=== PATIENT | male | born 1965 | race Caucasian/White ===

== ENCOUNTER 2017-03-12 08:56 | Inpatient (IN) | payer BC ==
[~2017-03-12] VITALS: Ht 175.3 cm; Wt 120.2 kg
--- NOTE | 2017-03-12 09:14 | PHYS DOC ---
Adult General Chief Complaint Chief Complaint: ALTERED MENTAL STATUS HPI HPI Patient is a 51 year old with no past medical history presents to the ED complaining of not feeling right over the last 3-4 days. States he gets really hot, has trouble concentrating and has been drinking a lot of water. Associated symptoms include dizziness and headache. Describes as sharp. Frontal part of head. Rates as 4/10. Denies flulike symptoms, chest pain, shortness of breath, weakness, nausea/vomiting, abdominal pain, fever, or sick contacts at home. Review of Systems Review of Systems Constitutional: Denies fever or chills [] Eyes: Denies change in visual acuity, redness, or eye pain [] HENT: Denies nasal congestion or sore throat [] Respiratory: Denies cough or shortness of breath [] Cardiovascular: No additional information not addressed in HPI [] GI: Denies abdominal pain, nausea, vomiting, bloody stools or diarrhea [] : Denies dysuria or hematuria [] Musculoskeletal: Denies back pain or joint pain [] Integument: Denies rash or skin lesions [] Neurologic: Complains of headache. Denies focal weakness or sensory changes [] Endocrine: Denies polyuria or polydipsia [] All other systems were reviewed and found to be within normal limits, except as documented in this note. Current Medications Current Medications Current Medications Medications (Trade) Dose Ordered Sig/Susan Start Time Stop Time Status Last Admin Dose Admin Hydralazine HCl (Apresoline Inj) 10 mg 1X ONCE 03/12/17 09:15 03/12/17 09:18 DC 03/12/17 09:31 10 MG Allergies Allergies Allergies Coded Allergies Type Severity Reaction Last Updated Verified No Known Drug Allergies 03/12/17 No Physical Exam Physical Exam Constitutional: Well developed, well nourished, no acute distress, non-toxic appearance. [] HENT: Normocephalic, atraumatic, bilateral external ears normal, oropharynx moist, no oral exudates, nose normal. [] Eyes: PERRLA, EOMI, conjunctiva normal, no discharge. [] Neck: Normal range of motion, no tenderness, supple, no stridor. [] Cardiovascular:Heart rate regular rhythm, no murmur [] Lungs & Thorax: Bilateral breath sounds clear to auscultation [] Abdomen: Bowel sounds normal, soft, no tenderness, no masses, no pulsatile masses. [] Skin: Warm, dry, no erythema, no rash. [] Back: No tenderness, no CVA tenderness. [] Extremities: No tenderness, no cyanosis, no clubbing, ROM intact, no edema. [] Neurologic: Alert and oriented X 3, normal motor function, normal sensory function, no focal deficits noted. [] Psychologic: Affect normal, judgement normal, mood normal. [] Current Patient Data Vital Signs Vital Signs Date Time Temp Pulse Resp B/P (MAP) Pulse Ox O2 Delivery O2 Flow Rate FiO2 03/12/17 10:19 72 14 94 03/12/17 09:31 212/122 03/12/17 09:02 98.1 Room Air 98.1 Lab Values Laboratory Tests Test 03/12/17 09:07 03/12/17 09:18 Glucose (Fingerstick) 118 mg/dL (70-99) H White Blood Count 8.8 x10^3/uL (4.0-11.0) Red Blood Count 5.26 x10^6/uL (4.30-5.70) Hemoglobin 16.0 g/dL (13.0-17.5) Hematocrit 47.0 % (39.0-53.0) Mean Corpuscular Volume 89 fL (79-100) Mean Corpuscular Hemoglobin 30 pg (25-35) Mean Corpuscular Hemoglobin Concent 34 g/dL (31-37) Red Cell Distribution Width 13.2 % (11.5-14.5) Platelet Count 255 x10^3/uL (140-400) Neutrophils (%) (Auto) 72 % (31-73) Lymphocytes (%) (Auto) 17 % (24-48) L Monocytes (%) (Auto) 9 % (0-9) Eosinophils (%) (Auto) 2 % (0-3) Basophils (%) (Auto) 1 % (0-3) Neutrophils # (Auto) 6.3 x10^3uL (1.8-7.7) Lymphocytes # (Auto) 1.5 x10^3/uL (1.0-4.8) Monocytes # (Auto) 0.8 x10^3/uL (0.0-1.1) Eosinophils # (Auto) 0.2 x10^3/uL (0.0-0.7) Basophils # (Auto) 0.1 x10^3/uL (0.0-0.2) Sodium Level 139 mmol/L (136-145) Potassium Level 3.9 mmol/L (3.5-5.1) Chloride Level 102 mmol/L (98-107) Carbon Dioxide Level 27 mmol/L (21-32) Anion Gap 10 (6-14) Blood Urea Nitrogen 17 mg/dL (8-26) Creatinine 1.1 mg/dL (0.7-1.3) Estimated GFR (Cockcroft-Gault) 70.6 BUN/Creatinine Ratio 15 (6-20) Glucose Level 112 mg/dL (70-99) H Calcium Level 9.5 mg/dL (8.5-10.1) Total Bilirubin 0.6 mg/dL (0.2-1.0) Aspartate Amino Transferase (AST) 26 U/L (15-37) Alanine Aminotransferase (ALT) 37 U/L (16-63) Alkaline Phosphatase 72 U/L (46-116) Creatine Kinase 153 U/L (39-308) Creatine Kinase MB (Mass) 0.5 ng/mL (0.0-3.6) Creatine Kinase MB Relative Index 0.3 % (0-4) Troponin I Quantitative < 0.017 ng/mL (0.000-0.055) Total Protein 8.3 g/dL (6.4-8.2) H Albumin 4.3 g/dL (3.4-5.0) Albumin/Globulin Ratio 1.1 (1.0-1.7) Laboratory Tests 03/12/17 09:18 Laboratory Tests 03/12/17 09:18 EKG EKG NSR at 69 bpm. No STEMI or ST-T wave changes.[] Radiology/Procedures Radiology/Procedures PROCEDURE: PORTABLE CHEST 1V EXAM: CHEST 1 VIEW History: Dizziness, high blood pressure COMPARISON: None available. TECHNIQUE: Single portable radiograph of the chest FINDINGS: The cardiac silhouette is unremarkable. The lungs are clear bilaterally. The costophrenic sulci are clear and well demarcated. IMPRESSION: No radiographic evidence of an acute cardiopulmonary process. [] PROCEDURE: CT HEAD WO CONTRAST CT of the head without contrast, 03/12/2017: History: Headache and dizziness There is an elongated fatty density mass located between and superior to the anterior aspects of the lateral ventricles in the pericallosal region. It is centered just to the left of midline. It measures approximately 4 cm in greatest AP dimension and 1 cm in width. 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 The lateral ventricles are somewhat small. There is no shift of the midline structures. There is no evidence of acute intracranial hemorrhage or mass effect. There is mild mucosal thickening in both ethmoid sinuses. A small mucosal nodule in the right maxillary sinus is probably a retention cyst. 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 MR scanning would best delineate these findings, if clinically indicated. 2. Small lateral ventricles. 3. No acute intracranial abnormality is detected. Course & Med Decision Making Course & Med Decision Making Pertinent Labs and Imaging studies reviewed. (See chart for details) []Discussed case with hospitalist, Dr. Garzon, and neurologist, Dr. Goldman. Agrees to admission and further management of patient. Aggressive BP management allowed due to no brain bleeding. Neurology recommends MRI with and without contrast to further evaluated CT head findings. Patient stable for admission. Dragon Disclaimer Dragon Disclaimer This electronic medical record was generated, in whole or in part, using a voice recognition dictation system. Departure Departure Impression: Primary Impression: Brain lipoma Additional Impression: Hypertensive urgency Disposition: ADMITTED INPATIENT Admitting Physician: Cristel Garzon Condition: STABLE Scripts Lisinopril (LISINOPRIL) 5 Mg Tablet 5 MG PO DAILY for 30 Days, #30 TAB 3 Refills Prov: ALEIDA DOCKERY MD 03/13/17 Hydrochlorothiazide (HYDROCHLOROTHIAZIDE TABLET ) 25 Mg Tablet 25 MG PO DAILY for 30 Days, #30 TAB 3 Refills Prov: ALEIDA DOCKERY MD 03/13/17 Problem Qualifiers ROBINSON PRESSLEY Mar 12, 2017 09:13
[2017-03-12] MEDS ORDERED: hydrALAZINE 20 MG/ML VIAL. IVP ONE (09:15)
--- NOTE | 2017-03-12 09:24 | EKG ---
[facility] [address] [place] [address] Test Date: 2017-03-12 Test Time: 09:20:05 Pat Name: HARRIET MURO Department: Room: Gender: M Fagoter: : 1965 Requested By: ROBINSON PRESSLEY Order Number: [id number] Reading MD: Measurements Intervals Marshall Rate: 69 P: 51 IN: 146 QRS: 19 QRSD: 98 T: 0 QT: 398 QTc: 428 Interpretive Statements SINUS RHYTHM NORMAL ECG RI6.01 No previous ECG available for comparison
[2017-03-12 09:34] LABS: BASO # 0.1 x10^3/uL (0.0-0.2); BASO % 1 % (0-3); EOS % 2 % (0-3); LYMPH # 1.5 x10^3/uL (1.0-4.8); LYMPH % 17 % (24-48); MEAN CORPUSCULAR HEMOGLOBIN 30 pg (25-35); MEAN CORPUSCULAR HGB CONC 34 g/dL (31-37); MEAN CORPUSCULAR VOLUME 89 fL (79-100); MONO % 9 % (0-9); NEUT % 72 % (31-73); PLATELET COUNT 255 x10^3/uL (140-400); RED BLOOD COUNT 5.26 x10^6/uL (4.30-5.70); RED CELL DISTRIBUTION WIDTH 13.2 % (11.5-14.5); WHITE BLOOD COUNT 8.8 x10^3/uL (4.0-11.0)
--- NOTE | 2017-03-12 09:37 | RAD ---
EXAM: CHEST 1 VIEW History: Dizziness, high blood pressure COMPARISON: None available. TECHNIQUE: Single portable radiograph of the chest FINDINGS: The cardiac silhouette is unremarkable. The lungs are clear bilaterally. The costophrenic sulci are clear and well demarcated. IMPRESSION: No radiographic evidence of an acute cardiopulmonary process.
[2017-03-12 09:38] LABS: CALCIUM 9.5 mg/dL (8.5-10.1); CREATININE 1.1 mg/dL (0.7-1.3); GFR 70.6; POTASSIUM 3.9 mmol/L (3.5-5.1)
[2017-03-12 09:44] LABS: ALBUMIN 4.3 g/dL (3.4-5.0); TOTAL PROTEIN 8.3 g/dL (6.4-8.2)
[2017-03-12 09:45] LABS: ALBUMIN/GLOBULIN RATIO 1.1 (1.0-1.7); TOTAL BILIRUBIN 0.6 mg/dL (0.2-1.0)
[2017-03-12 09:52] LABS: CKMB MASS 0.5 ng/mL (0.0-3.6)
--- NOTE | 2017-03-12 10:12 | RAD ---
CT of the head without contrast, 03/12/2017: History: Headache and dizziness There is an elongated fatty density mass located between and superior to the anterior aspects of the lateral ventricles in the pericallosal region. It is centered just to the left of midline. It measures approximately 4 cm in greatest AP dimension and 1 cm in width. 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 The lateral ventricles are somewhat small. There is no shift of the midline structures. There is no evidence of acute intracranial hemorrhage or mass effect. There is mild mucosal thickening in both ethmoid sinuses. A small mucosal nodule in the right maxillary sinus is probably a retention cyst. 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 MR scanning would best delineate these findings, if clinically indicated. 2. Small lateral ventricles. 3. No acute intracranial abnormality is detected. PQRS Compliance Statement: One or more of the following individualized dose reduction techniques were utilized for this examination: 1. Automated exposure control 2. Adjustment of the mA and/or kV according to patient size 3. Use of iterative reconstruction technique
[2017-03-12] MEDS ORDERED: MORPHINE SULFATE 2 MG/ML DISP.SYRIN. IV PRN (11:00)
[2017-03-12] MEDS ORDERED: ACETAMINOPHEN 325 MG TABLET. PO PRN (11:00)
[2017-03-12] MEDS ORDERED: ONDANSETRON PF 4 MG/2 ML VIAL. IV PRN ×2 (11:00→12:15)
[2017-03-12 11:36] VITALS: BP 189/104
[2017-03-12 11:37] VITALS: BP 196/64
[2017-03-12 13:42] LABS: BILIRUBIN,URINE NEGATIVE (NEG); GLUCOSE,URINE NEGATIVE (NEG); NITRITE,URINE NEGATIVE (NEG); PROTEIN,URINE NEGATIVE (NEG-TRACE); UROBILINOGEN,URINE 0.2 mg/dL (0.2 mg/dL)
[2017-03-12 13:49] LABS: BACTERIA,URINE 0 /HPF (0-FEW); RBC,URINE 0 /HPF (0-2); WBC,URINE 0 /HPF (0-4)
[2017-03-12 13:50] LABS: BARBITURATES NEG (NEG); BENZODIAZEPINES NEG (NEG); CANNABINOIDS NEG (NEG); COCAINE NEG (NEG); METHADONE NEG (NEG); OPIATES NEG (NEG); PHENCYCLIDINE NEG (NEG)
[2017-03-12] MEDS: hydrALAZINE 20 MG/ML VIAL. IVP PRN ×2 (14:11→19:45)
--- NOTE | 2017-03-12 14:37 | PDOC1 ---
History and Physical Date of Admission Date of Admission DATE: 03/12/17 TIME: 14:32 Identification/Chief Complaint Chief Complaint Headaches for 3 days Problems: Source Source: Caregiver, Chart review, Patient History of Present Illness History of Present Illness Pleasant 51-year-old male on the heavy side BMI 39.1, does not take any home medications prior to admission, has been feeling fairly well up until 3 days prior to admission some mild to moderate headaches. Hence he came to the emergency room, a failure was found have a systolic greater than 220s over 120s diastolic. CAT scan of the head was done which showed possible lipoma in the middle part of the brain, mid sagittal area. Neurology was consulted advised MRI with and without contrast. Patient attempted to go down with MRI machine with a cooling system is broken. The erythematous fix it. If not today delivered tomorrow. Patient still requiring IV labetalol when necessary push that I have ordered because of high blood pressure. Aside from mild headache no other symptoms of neck pains blurry vision or focal neuro deficits. Physical examination his P relief entirely normal no hematoma murmur. I do believe the being findings are only incidental, we will try to control his blood pressure and start him on oral blood pressure medications. I did discuss with him he will need to establish PCP and get BMP in 1 month into taking his blood pressure medications which are old. He understands. Past Medical History Cardiovascular: No pertinent hx Pulmonary: No pertinent hx GI: No pertinent hx Heme/Onc: No pertinent hx Hepatobiliary: No pertinent hx Psych: No pertinent hx Rheumatologic: No pertinent hx Infectious disease: No pertinent hx ENT: No pertinent hx Renal/: No pertinent hx Endocrine: No pertinent hx Dermatology: No pertinent hx Past Surgical History Past Surgical History: No pertinent history Family History Family History: Hypertension Social History Smoke: No ALCOHOL: none Drugs: None Current Medications Current Medications Current Medications Hydralazine HCl (Apresoline Inj) 10 mg 1X ONCE IVP Last administered on t 09:31; Start 03/12/17 at 09:15; Stop 03/12/17 at 09:18; Status DC Ondansetron HCl (Zofran) 4 mg PRN Q8HRS PRN IV NAUSEA/VOMITING; Start 03/12/17 at 11:00; Stop 03/12/17 at 12:06; Status DC Morphine Sulfate 2 mg PRN Q2HR PRN IV PAIN; Start 03/12/17 at 11:00; Stop 03/13 at 10:59 Acetaminophen (Tylenol) 650 mg PRN Q4HRS PRN PO FEVER; Start 03/12/17 at 11:00 ; Stop 03/13/17 at 10:59 Ondansetron HCl (Zofran) 4 mg PRN Q6HRS PRN IV NAUSEA/VOMITING; Start 03/12/17 at 12:15; Stop 03/13/17 at 12:14 Hydralazine HCl (Apresoline Inj) 10 mg PRN Q4HRS PRN IVP ELEVATED BP, SEE COMMENTS Last administered on 03/12/17t 14:11; Start 03/12/17 at 12:15 Acetaminophen/ Hydrocodone Bitart (Lortab 5/325) 1 tab PRN Q4HRS PRN PO PAIN; Start 03/12/17 at 12:15 Allergies Allergies: Coded Allergies: No Known Drug Allergies (Unverified , 03/12/17) ROS Review of System A 14 point ROS was completed with the following noted as positive: Other systems reviewed and negative. \CONSTITUTIONAL: No fever or chills EYES: No recent changes SKIN: No rash or itching CARDIOVASCULAR: No chest pain, syncope, palpitations, or edema RESPIRATORY: No SOB or cough GASTROINTESTINAL: No nausea, vomiting or abdominal pain NEUROLOGICAL: No headaches or weakness ENDOCRINE: No cold or heat intolerance GENITOURINARY: No urgency or frequency of urination MUSCULOSKELETAL: No back pain or joint pain LYMPHATICS: No enlarged lymph nodes PSYCHIATRIC: No anxiety or depression Physical Exam Physical Exam Physical Exam General: Alert, Oriented X3, Cooperative, No acute distress HEENT: Atraumatic, PERRLA Lungs: Normal air movement, Other (wheezy) Heart: S1S2, RRR, no thrills, no gallops, no murmurs Cardiovascular: S1, S2 Abdomen: Normal bowel sounds, Soft, No tenderness, No hepatosplenomegaly, No masses, Other (obese) Rectal Exam: not examined PELVIC: Nml ext genitalia Extremities: No rashes, no edema, pulses full and equal Skin: No rashes, No breakdown, No significant lesion Neuro: Normal gait, Normal speech, Strength at 5/5 X4 ext, Normal tone, Sensation intact, Cranial nerves 3-12 NL, Reflexes 2+ Psych/Mental Status: Mental status NL, Mood NL Vitals Vitals Vital Signs Date Time Temp Pulse Resp B/P (MAP) Pulse Ox O2 Delivery O2 Flow Rate FiO2 03/12/17 14:11 68 165/93 03/12/17 11:59 Room Air 03/12/17 11:36 97.9 16 96 97.9 Labs Labs Laboratory Tests Test 03/12/17 09:07 03/12/17 09:18 03/12/17 13:25 Glucose (Fingerstick) 118 mg/dL (70-99) White Blood Count 8.8 x10^3/uL (4.0-11.0) Red Blood Count 5.26 x10^6/uL (4.30-5.70) Hemoglobin 16.0 g/dL (13.0-17.5) Hematocrit 47.0 % (39.0-53.0) Mean Corpuscular Volume 89 fL (79-100) Mean Corpuscular Hemoglobin 30 pg (25-35) Mean Corpuscular Hemoglobin Concent 34 g/dL (31-37) Red Cell Distribution Width 13.2 % (11.5-14.5) Platelet Count 255 x10^3/uL (140-400) Neutrophils (%) (Auto) 72 % (31-73) Lymphocytes (%) (Auto) 17 % (24-48) Monocytes (%) (Auto) 9 % (0-9) Eosinophils (%) (Auto) 2 % (0-3) Basophils (%) (Auto) 1 % (0-3) Neutrophils # (Auto) 6.3 x10^3uL (1.8-7.7) Lymphocytes # (Auto) 1.5 x10^3/uL (1.0-4.8) Monocytes # (Auto) 0.8 x10^3/uL (0.0-1.1) Eosinophils # (Auto) 0.2 x10^3/uL (0.0-0.7) Basophils # (Auto) 0.1 x10^3/uL (0.0-0.2) Sodium Level 139 mmol/L (136-145) Potassium Level 3.9 mmol/L (3.5-5.1) Chloride Level 102 mmol/L (98-107) Carbon Dioxide Level 27 mmol/L (21-32) Anion Gap 10 (6-14) Blood Urea Nitrogen 17 mg/dL (8-26) Creatinine 1.1 mg/dL (0.7-1.3) Estimated GFR (Cockcroft-Gault) 70.6 BUN/Creatinine Ratio 15 (6-20) Glucose Level 112 mg/dL (70-99) Calcium Level 9.5 mg/dL (8.5-10.1) Total Bilirubin 0.6 mg/dL (0.2-1.0) Aspartate Amino Transf (AST/SGOT) 26 U/L (15-37) Alanine Aminotransferase (ALT/SGPT) 37 U/L (16-63) Alkaline Phosphatase 72 U/L (46-116) Creatine Kinase 153 U/L (39-308) Creatine Kinase MB (Mass) 0.5 ng/mL (0.0-3.6) Creatine Kinase MB Relative Index 0.3 % (0-4) Troponin I Quantitative < 0.017 ng/mL (0.000-0.055) Total Protein 8.3 g/dL (6.4-8.2) Albumin 4.3 g/dL (3.4-5.0) Albumin/Globulin Ratio 1.1 (1.0-1.7) Urine Collection Type Unknown Urine Color Yellow Urine Clarity Clear Urine pH 6.0 Urine Specific [place] 1.025 Urine Protein Negative mg/dL (NEG-TRACE) Urine Glucose (UA) Negative mg/dL (NEG) Urine Ketones (Stick) Negative mg/dL (NEG) Urine Blood Negative (NEG) Urine Nitrite Negative (NEG) Urine Bilirubin Negative (NEG) Urine Urobilinogen Dipstick 0.2 mg/dL (0.2 mg/dL) Urine Leukocyte Esterase Negative (NEG) Urine RBC 0 /HPF (0-2) Urine WBC 0 /HPF (0-4) Urine Squamous Epithelial Cells None /LPF Urine Bacteria 0 /HPF (0-FEW) Urine Mucus Marked /LPF Urine Opiates Screen Neg (NEG) Urine Methadone Screen Neg (NEG) Urine Barbiturates Neg (NEG) Urine Phencyclidine Screen Neg (NEG) Urine Amphetamine/Methamphetamine Neg (NEG) Urine Benzodiazepines Screen Neg (NEG) Urine Cocaine Screen Neg (NEG) Urine Cannabinoids Screen Neg (NEG) Urine Ethyl Alcohol Neg (NEG) Laboratory Tests Test 03/12/17 09:07 03/12/17 09:18 124/17 13:25 Glucose (Fingerstick) 118 mg/dL (70-99) White Blood Count 8.8 x10^3/uL (4.0-11.0) Red Blood Count 5.26 x10^6/uL (4.30-5.70) Hemoglobin 16.0 g/dL (13.0-17.5) Hematocrit 47.0 % (39.0-53.0) Mean Corpuscular Volume 89 fL (79-100) Mean Corpuscular Hemoglobin 30 pg (25-35) Mean Corpuscular Hemoglobin Concent 34 g/dL (31-37) Red Cell Distribution Width 13.2 % (11.5-14.5) Platelet Count 255 x10^3/uL (140-400) Neutrophils (%) (Auto) 72 % (31-73) Lymphocytes (%) (Auto) 17 % (24-48) Monocytes (%) (Auto) 9 % (0-9) Eosinophils (%) (Auto) 2 % (0-3) Basophils (%) (Auto) 1 % (0-3) Neutrophils # (Auto) 6.3 x10^3uL (1.8-7.7) Lymphocytes # (Auto) 1.5 x10^3/uL (1.0-4.8) Monocytes # (Auto) 0.8 x10^3/uL (0.0-1.1) Eosinophils # (Auto) 0.2 x10^3/uL (0.0-0.7) Basophils # (Auto) 0.1 x10^3/uL (0.0-0.2) Sodium Level 139 mmol/L (136-145) Potassium Level 3.9 mmol/L (3.5-5.1) Chloride Level 102 mmol/L (98-107) Carbon Dioxide Level 27 mmol/L (21-32) Anion Gap 10 (6-14) Blood Urea Nitrogen 17 mg/dL (8-26) Creatinine 1.1 mg/dL (0.7-1.3) Estimated GFR (Cockcroft-Gault) 70.6 BUN/Creatinine Ratio 15 (6-20) Glucose Level 112 mg/dL (70-99) Calcium Level 9.5 mg/dL (8.5-10.1) Total Bilirubin 0.6 mg/dL (0.2-1.0) Aspartate Amino Transf (AST/SGOT) 26 U/L (15-37) Alanine Aminotransferase (ALT/SGPT) 37 U/L (16-63) Alkaline Phosphatase 72 U/L (46-116) Creatine Kinase 153 U/L (39-308) Creatine Kinase MB (Mass) 0.5 ng/mL (0.0-3.6) Creatine Kinase MB Relative Index 0.3 % (0-4) Troponin I Quantitative < 0.017 ng/mL (0.000-0.055) Total Protein 8.3 g/dL (6.4-8.2) Albumin 4.3 g/dL (3.4-5.0) Albumin/Globulin Ratio 1.1 (1.0-1.7) Urine Collection Type Unknown Urine Color Yellow Urine Clarity Clear Urine pH 6.0 Urine Specific [place] 1.025 Urine Protein Negative mg/dL (NEG-TRACE) Urine Glucose (UA) Negative mg/dL (NEG) Urine Ketones (Stick) Negative mg/dL (NEG) Urine Blood Negative (NEG) Urine Nitrite Negative (NEG) Urine Bilirubin Negative (NEG) Urine Urobilinogen Dipstick 0.2 mg/dL (0.2 mg/dL) Urine Leukocyte Esterase Negative (NEG) Urine RBC 0 /HPF (0-2) Urine WBC 0 /HPF (0-4) Urine Squamous Epithelial Cells None /LPF Urine Bacteria 0 /HPF (0-FEW) Urine Mucus Marked /LPF Urine Opiates Screen Neg (NEG) Urine Methadone Screen Neg (NEG) Urine Barbiturates Neg (NEG) Urine Phencyclidine Screen Neg (NEG) Urine Amphetamine/Methamphetamine Neg (NEG) Urine Benzodiazepines Screen Neg (NEG) Urine Cocaine Screen Neg (NEG) Urine Cannabinoids Screen Neg (NEG) Urine Ethyl Alcohol Neg (NEG) VTE Prophylaxis Ordered VTE Prophylaxis Devices: Yes VTE Pharmacological Prophylaxi: Yes Assessment/Plan Assessment/Plan Hypertensive emergency present on admission number Headaches 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 ASHWINI WOOD MD Mar 12, 2017 14:37
--- NOTE | 2017-03-12 14:49 | PDOC2 ---
NEUROLOGY CONSULT Date of Admission Date of Admission DATE: 03/12/17 TIME: 14:45 Reason for Consult Reason for Consult: Abnormal head CT Referring Physician Referring Physician: Dr. Garzon PCP: Ms. Alves Source Source: Caregiver, Patient History of Present Illness History of Present Illness The patient is a 51-year-old right-handed male admitted to the emergency department with 3 days of confusion and headache. He was found to have severe hypertension and an abnormal head CT as reviewed below. Interestingly, he says that his sister had a fatty tumor removed from her head, but he does not know if this was intracranial. He denies the history of strokes, seizure, or head injury. 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 Current Medications Current Medications Current Medications Hydralazine HCl (Apresoline Inj) 10 mg 1X ONCE IVP Last administered on 09:31; Start 03/12/17 at 09:15; Stop 03/12/17 at 09:18; Status DC Ondansetron HCl (Zofran) 4 mg PRN Q8HRS PRN IV NAUSEA/VOMITING; Start 03/12/17 at 11:00; Stop 03/12/17 at 12:06; Status DC Morphine Sulfate 2 mg PRN Q2HR PRN IV PAIN; Start 03/12/17 at 11:00; Stop 03/13 at 10:59 Acetaminophen (Tylenol) 650 mg PRN Q4HRS PRN PO FEVER; Start 03/12/17 at 11:00 ; Stop 03/13/17 at 10:59 Ondansetron HCl (Zofran) 4 mg PRN Q6HRS PRN IV NAUSEA/VOMITING; Start 03/12/17 at 12:15; Stop 03/13/17 at 12:14 Hydralazine HCl (Apresoline Inj) 10 mg PRN Q4HRS PRN IVP ELEVATED BP, SEE COMMENTS Last administered on 03/12/17 14:11; Start 03/12/17 at 12:15 Acetaminophen/ Hydrocodone Bitart (Lortab 5/325) 1 tab PRN Q4HRS PRN PO PAIN; Start 03/12/17 at 12:15 Lisinopril (Prinivil) 5 mg DAILY PO ; Start 03/12/17 at 14:45 Hydrochlorothiazide (Hydrodiuril) 25 mg DAILY PO ; Start 03/12/17 at 14:45 Allergies Allergies: Coded Allergies: No Known Drug Allergies (Unverified , 03/12/17) ROS Review of System Negative for fevers, chills, weight loss, shortness of breath, chest pain, indigestion, hematochezia, melena, dysuria. Full 14-point review systems is negative. Physical Exam Physical Examination PHYSICAL EXAMINATION: Vital signs: see above. General appearance is normal and in no acute distress. HEENT: Normocephalic and nontraumatic. Eyes, nose, ears, and throat are unremarkable. Neck is supple. No lymphadenopathy. No bruits are heard over the carotid artery. No crepitus. NEUROLOGICAL EXAMINATION: Mental Status Examination: Alert. Oriented to time, place, and person. Answers questions and follows commends. Pupils are equal round and reactive to light and accommodation. Funduscopic exam: No papilledema. Extraocular movements are intact. Visual field exam shows no defect on the direct confrontation. No motor or sensory deficits on the facial exam. Uvula in the midline and the soft palate elevated symmetrically. No deviation of the tongue to any direction. Gross hearing is normal. Shoulder shrug normal. Muscle tone is normal. Muscle strength is 5. Deep tendon reflexes are 2+ all around. Plantar reflex is with flexion response bilaterally. [id number]-[id number] test performance is accurate. Tandem walk test is accurate. Alternative movements are accurate. Romberg test is negative. Gait is normal. Sensory exam shows no deficits. No cerebellar signs are elicited. Vitals VITALS Vital Signs Date Time Temp Pulse Resp B/P (MAP) Pulse Ox O2 Delivery O2 Flow Rate FiO2 03/12/17 14:11 68 165/93 03/12/17 11:59 Room Air 03/12/17 11:36 97.9 16 96 97.9 Labs Labs Laboratory Tests Test 03/12/17 09:07 03/12/17 09:18 03/12/17 13:25 Glucose (Fingerstick) 118 mg/dL (70-99) White Blood Count 8.8 x10^3/uL (4.0-11.0) Red Blood Count 5.26 x10^6/uL (4.30-5.70) Hemoglobin 16.0 g/dL (13.0-17.5) Hematocrit 47.0 % (39.0-53.0) Mean Corpuscular Volume 89 fL (79-100) Mean Corpuscular Hemoglobin 30 pg (25-35) Mean Corpuscular Hemoglobin Concent 34 g/dL (31-37) Red Cell Distribution Width 13.2 % (11.5-14.5) Platelet Count 255 x10^3/uL (140-400) Neutrophils (%) (Auto) 72 % (31-73) Lymphocytes (%) (Auto) 17 % (24-48) Monocytes (%) (Auto) 9 % (0-9) Eosinophils (%) (Auto) 2 % (0-3) Basophils (%) (Auto) 1 % (0-3) Neutrophils # (Auto) 6.3 x10^3uL (1.8-7.7) Lymphocytes # (Auto) 1.5 x10^3/uL (1.0-4.8) Monocytes # (Auto) 0.8 x10^3/uL (0.0-1.1) Eosinophils # (Auto) 0.2 x10^3/uL (0.0-0.7) Basophils # (Auto) 0.1 x10^3/uL (0.0-0.2) Sodium Level 139 mmol/L (136-145) Potassium Level 3.9 mmol/L (3.5-5.1) Chloride Level 102 mmol/L (98-107) Carbon Dioxide Level 27 mmol/L (21-32) Anion Gap 10 (6-14) Blood Urea Nitrogen 17 mg/dL (8-26) Creatinine 1.1 mg/dL (0.7-1.3) Estimated GFR (Cockcroft-Gault) 70.6 BUN/Creatinine Ratio 15 (6-20) Glucose Level 112 mg/dL (70-99) Calcium Level 9.5 mg/dL (8.5-10.1) Total Bilirubin 0.6 mg/dL (0.2-1.0) Aspartate Amino Transf (AST/SGOT) 26 U/L (15-37) Alanine Aminotransferase (ALT/SGPT) 37 U/L (16-63) Alkaline Phosphatase 72 U/L (46-116) Creatine Kinase 153 U/L (39-308) Creatine Kinase MB (Mass) 0.5 ng/mL (0.0-3.6) Creatine Kinase MB Relative Index 0.3 % (0-4) Troponin I Quantitative < 0.017 ng/mL (0.000-0.055) Total Protein 8.3 g/dL (6.4-8.2) Albumin 4.3 g/dL (3.4-5.0) Albumin/Globulin Ratio 1.1 (1.0-1.7) Urine Collection Type Unknown Urine Color Yellow Urine Clarity Clear Urine pH 6.0 Urine Specific [place] 1.025 Urine Protein Negative mg/dL (NEG-TRACE) Urine Glucose (UA) Negative mg/dL (NEG) Urine Ketones (Stick) Negative mg/dL (NEG) Urine Blood Negative (NEG) Urine Nitrite Negative (NEG) Urine Bilirubin Negative (NEG) Urine Urobilinogen Dipstick 0.2 mg/dL (0.2 mg/dL) Urine Leukocyte Esterase Negative (NEG) Urine RBC 0 /HPF (0-2) Urine WBC 0 /HPF (0-4) Urine Squamous Epithelial Cells None /LPF Urine Bacteria 0 /HPF (0-FEW) Urine Mucus Marked /LPF Urine Opiates Screen Neg (NEG) Urine Methadone Screen Neg (NEG) Urine Barbiturates Neg (NEG) Urine Phencyclidine Screen Neg (NEG) Urine Amphetamine/Methamphetamine Neg (NEG) Urine Benzodiazepines Screen Neg (NEG) Urine Cocaine Screen Neg (NEG) Urine Cannabinoids Screen Neg (NEG) Urine Ethyl Alcohol Neg (NEG) Laboratory Tests Test 03/12/17 09:07 03/12/17 09:18 03/12/17 13:25 Glucose (Fingerstick) 118 mg/dL (70-99) White Blood Count 8.8 x10^3/uL (4.0-11.0) Red Blood Count 5.26 x10^6/uL (4.30-5.70) Hemoglobin 16.0 g/dL (13.0-17.5) Hematocrit 47.0 % (39.0-53.0) Mean Corpuscular Volume 89 fL (79-100) Mean Corpuscular Hemoglobin 30 pg (25-35) Mean Corpuscular Hemoglobin Concent 34 g/dL (31-37) Red Cell Distribution Width 13.2 % (11.5-14.5) Platelet Count 255 x10^3/uL (140-400) Neutrophils (%) (Auto) 72 % (31-73) Lymphocytes (%) (Auto) 17 % (24-48) Monocytes (%) (Auto) 9 % (0-9) Eosinophils (%) (Auto) 2 % (0-3) Basophils (%) (Auto) 1 % (0-3) Neutrophils # (Auto) 6.3 x10^3uL (1.8-7.7) Lymphocytes # (Auto) 1.5 x10^3/uL (1.0-4.8) Monocytes # (Auto) 0.8 x10^3/uL (0.0-1.1) Eosinophils # (Auto) 0.2 x10^3/uL (0.0-0.7) Basophils # (Auto) 0.1 x10^3/uL (0.0-0.2) Sodium Level 139 mmol/L (136-145) Potassium Level 3.9 mmol/L (3.5-5.1) Chloride Level 102 mmol/L (98-107) Carbon Dioxide Level 27 mmol/L (21-32) Anion Gap 10 (6-14) Blood Urea Nitrogen 17 mg/dL (8-26) Creatinine 1.1 mg/dL (0.7-1.3) Estimated GFR (Cockcroft-Gault) 70.6 BUN/Creatinine Ratio 15 (6-20) Glucose Level 112 mg/dL (70-99) Calcium Level 9.5 mg/dL (8.5-10.1) Total Bilirubin 0.6 mg/dL (0.2-1.0) Aspartate Amino Transf (AST/SGOT) 26 U/L (15-37) Alanine Aminotransferase (ALT/SGPT) 37 U/L (16-63) Alkaline Phosphatase 72 U/L (46-116) Creatine Kinase 153 U/L (39-308) Creatine Kinase MB (Mass) 0.5 ng/mL (0.0-3.6) Creatine Kinase MB Relative Index 0.3 % (0-4) Troponin I Quantitative < 0.017 ng/mL (0.000-0.055) Total Protein 8.3 g/dL (6.4-8.2) Albumin 4.3 g/dL (3.4-5.0) Albumin/Globulin Ratio 1.1 (1.0-1.7) Urine Collection Type Unknown Urine Color Yellow Urine Clarity Clear Urine pH 6.0 Urine Specific [place] 1.025 Urine Protein Negative mg/dL (NEG-TRACE) Urine Glucose (UA) Negative mg/dL (NEG) Urine Ketones (Stick) Negative mg/dL (NEG) Urine Blood Negative (NEG) Urine Nitrite Negative (NEG) Urine Bilirubin Negative (NEG) Urine Urobilinogen Dipstick 0.2 mg/dL (0.2 mg/dL) Urine Leukocyte Esterase Negative (NEG) Urine RBC 0 /HPF (0-2) Urine WBC 0 /HPF (0-4) Urine Squamous Epithelial Cells None /LPF Urine Bacteria 0 /HPF (0-FEW) Urine Mucus Marked /LPF Urine Opiates Screen Neg (NEG) Urine Methadone Screen Neg (NEG) Urine Barbiturates Neg (NEG) Urine Phencyclidine Screen Neg (NEG) Urine Amphetamine/Methamphetamine Neg (NEG) Urine Benzodiazepines Screen Neg (NEG) Urine Cocaine Screen Neg (NEG) Urine Cannabinoids Screen Neg (NEG) Urine Ethyl Alcohol Neg (NEG) Images Images CT of the head without contrast, 03/12/2017: History: Headache and dizziness There is an elongated fatty density mass located between and superior to the anterior aspects of the lateral ventricles in the pericallosal region. It is centered just to the left of midline. It measures approximately 4 cm in greatest AP dimension and 1 cm in width. 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 The lateral ventricles are somewhat small. There is no shift of the midline structures. There is no evidence of acute intracranial hemorrhage or mass effect. There is mild mucosal thickening in both ethmoid sinuses. A small mucosal nodule in the right maxillary sinus is probably a retention cyst. 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 MR scanning would best delineate these findings, if clinically indicated. 2. Small lateral ventricles. 3. No acute intracranial abnormality is detected. 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 Recommendations: MRI of the brain. Okay for aggressive treatment of hypertension given the fact that the exam and had scan are negative for any acute stroke. Thank you for letting me help with the patient's care. ELISHA ESPINO MD Mar 12, 2017 14:49
[2017-03-12 15:00] VITALS: BP 167/87
[2017-03-12] MEDS: HYDROcodone/APAP 5/325MG 1 TAB TABLET PO PRN ×2 (15:16→19:46)
--- NOTE | 2017-03-12 16:32 | CARD ---
APPROVED REPORT EXAM: Two-dimensional and M-mode echocardiogram with Doppler and color Doppler. Other Information Quality : Good INDICATION Hypertension/HCVD 2D DIMENSIONS RVDd3.1 (2.9-3.5cm)Left Atrium(2D)3.6 (1.6-4.0cm) IVSd1.2 (0.7-1.1cm)Aortic Root(2D)2.8 (2.0-3.7cm) LVDd5.1 (3.9-5.9cm)LVOT Diameter2.0 (1.8-2.4cm) PWd1.4 (0.7-1.1cm)LVDs3.1 (2.5-4.0cm) FS (%) 30.0 %SV85.2 ml LVEF(%)60.0 (>50%) Aortic Valve AoV Peak Rajiv.138.9cm/sAoV VTI23.5cm AO Peak GR.7.7mmHgLVOT Peak Rajiv.105.6cm/s AO Mean GR.4mmHgAVA (VMAX)2.35cm2 GLORIA (VTI)2.60cm2 Mitral Valve MV E Vidyztgl93.1cm/sMV DECEL PVKA552wh MV A Uoxaodtj80.7cm/sE/A Ratio0.8 Pulmonary Vein S1 Krmsjhjo30.1cm/sD2 Fjugvian78.9cm/s LEFT VENTRICLE The left ventricle is normal size. There is mild concentric left ventricular hypertrophy. The left ve ntricular systolic function is normal. The Ejection Fraction is 55-60%. There is normal LV segmental wall motion. Transmitral Doppler flow pattern is Grade I-abnormal relaxation pattern. RIGHT VENTRICLE The right ventricle is normal size. The right ventricular systolic function is normal. ATRIA The left atrium size is normal. The right atrium size is normal. The interatrial septum is intact wit h no evidence for an atrial septal defect or patent foramen ovale as noted on 2-D or Doppler imaging. AORTIC VALVE The aortic valve is normal in structure and function. Doppler and Color Flow revealed no significant aortic regurgitation. There is no significant aortic valvular stenosis. MITRAL VALVE The mitral valve is normal in structure and function. There is no evidence of mitral valve prolapse. There is no mitral valve stenosis. Doppler and Color Flow revealed no mitral valve regurgitation note d. TRICUSPID VALVE The tricuspid valve is normal in structure and function. Doppler and Color Flow revealed no tricuspid valve regurgitation noted. There is no tricuspid valve stenosis. PULMONIC VALVE The pulmonary valve is normal in structure and function. Doppler and Color Flow revealed no pulmonic valvular regurgitation. There is no pulmonic valvular stenosis. GREAT VESSELS The aortic root is normal in size. The ascending aorta is normal in size. The IVC is normal in size a nd collapses >50% with inspiration. PERICARDIAL EFFUSION There is no evidence of significant pericardial effusion. Critical Notification Critical Value: No <Conclusion> The left ventricular systolic function is normal. The Ejection Fraction is 55-60%. There is normal LV segmental wall motion. Transmitral Doppler flow pattern is Grade I-abnormal relaxation pattern. There is no evidence of significant pericardial effusion.
[2017-03-12] MEDS ORDERED: GADOBUTROL 10 MMOL/10 ML VIAL IV ONE (16:45)
--- NOTE | 2017-03-12 17:38 | RAD ---
MRI of the Brain without and with Contrast 03/12/2017 Clinical History: Headache and dizziness. Possible mass seen on CT scan of the head from earlier today. Technique: Unenhanced T1-weighted sagittal and axial and FLAIR, T2-weighted, gradient echo and diffusion-weighted axial images of the brain were obtained. After the intravenous administration of 10 cc of Gadavist, enhanced T1-weighted axial and coronal images of the brain were obtained. Findings: Comparison is made to the patient's CT scan of the head performed earlier today. The ventricles are within normal limits in size and configuration. 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 This measures 4.4 cm in greatest AP dimension. This corresponds to the abnormality seen on the patient's CT scan. 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 Patchy and several small scattered areas of abnormally increased signal intensity are seen within the periventricular and subcortical white matter of both cerebral hemispheres on the FLAIR and T2-weighted images consistent most likely with areas of mild small vessel ischemic disease. No acute parenchymal normality is seen. No extra-axial fluid collection is noted. No area of abnormal contrast enhancement is seen. Mild to moderate mucosal thickening is seen involving the paranasal sinuses. Normal flow voids are seen within the major vascular structures surrounding the brain parenchyma. IMPRESSION:. 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 This corresponds to the abnormality seen on the patient's CT scan. No acute parenchymal abnormality is seen. Electronically signed by: Matthew Celeste MD (03/12/2017 5:35 PM) [id number]
[2017-03-12] MEDS: hydroCHLOROthiazide 25 MG TABLET PO SCH (18:07)
[2017-03-12] MEDS: LISINOPRIL 5 MG TABLET. PO SCH (18:08)
[2017-03-12 19:00] VITALS: BP 159/96
[2017-03-12] MEDS ORDERED: diphenhydrAMINE HCL 25 MG CAPSULE PO PRN (21:15)
[2017-03-12] MEDS ORDERED: OXYMETAZOLINE 0.05% NASAL SPRAY 30ML BOTTLE. NS ONE (21:15)
[2017-03-12] MEDS ORDERED: diphenhydrAMINE HCL 25 MG CAPSULE PO ONE (21:15)
[2017-03-12 23:05] VITALS: BP 128/76
[2017-03-13 03:05] VITALS: BP 107/68
[2017-03-13 04:43] LABS: BASO % 1 % (0-3); EOS % 2 % (0-3); HEMATOCRIT 45.7 % (39.0-53.0); HEMOGLOBIN 15.4 g/dL (13.0-17.5); LYMPH # 2.3 x10^3/uL (1.0-4.8); LYMPH % 25 % (24-48); MEAN CORPUSCULAR HEMOGLOBIN 30 pg (25-35); MEAN CORPUSCULAR HGB CONC 34 g/dL (31-37); MEAN CORPUSCULAR VOLUME 90 fL (79-100); MONO % 11 % (0-9); NEUT % 62 % (31-73); PLATELET COUNT 248 x10^3/uL (140-400); RED BLOOD COUNT 5.09 x10^6/uL (4.30-5.70); RED CELL DISTRIBUTION WIDTH 13.4 % (11.5-14.5); WHITE BLOOD COUNT 9.5 x10^3/uL (4.0-11.0)
[2017-03-13 06:31] LABS: ALBUMIN 3.9 g/dL (3.4-5.0); ALBUMIN/GLOBULIN RATIO 1.1 (1.0-1.7); CALCIUM 9.3 mg/dL (8.5-10.1); CREATININE 1.3 mg/dL (0.7-1.3); GFR 58.2; POTASSIUM 3.5 mmol/L (3.5-5.1); TOTAL BILIRUBIN 0.6 mg/dL (0.2-1.0); TOTAL PROTEIN 7.5 g/dL (6.4-8.2)
[2017-03-13 07:00] VITALS: BP 138/85
[2017-03-13] MEDS: LISINOPRIL 5 MG TABLET. PO SCH (08:11)
[2017-03-13] MEDS: hydroCHLOROthiazide 25 MG TABLET PO SCH (08:12)
--- NOTE | 2017-03-13 08:56 | PDOC ---
PROGRESS NOTES Assessment Hypertension with some encephalopathy, resolved No evidence of acute stroke, mild white matter changes in the brain not requiring any treatment. I am not even sure that I would start aspirin for these changes. He had a recent cholesterol test and was told it was normal. 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 Recommendations: No need for follow up MRI brain studies Follow-up with neurology as needed Okay for discharge Close follow-up by primary physician regarding blood pressure. Plan No complaints Objective Vital Signs Date Time Temp Pulse Resp B/P (MAP) Pulse Ox O2 Delivery O2 Flow Rate FiO2 03/13/17 08:13 Room Air 03/13/17 08:11 72 138/85 03/13/17 07:00 98.1 16 98 98.1 Intake and Output 03/13/17 07:00 Intake Total 650 ml Balance 650 ml Intake Oral 650 ml PHYSICAL EXAM Alert. Oriented to time, place and person. PERRL. EOMI. CN: no focal findings. Muscle tone: normal. Muscle strength: 5/5 DTR: 2+ Plantar reflex: Flexor Gait: not examined in bed. Sensory exam: no abnormal findings. No cerebellar signs elicited. Review of Relevant I have reviewed the following items debbie (where applicable) has been applied. Labs Laboratory Tests Test 03/12/17 09:07 03/12/17 09:18 03/12/17 13:25 03/12/17 17:50 Glucose (Fingerstick) 118 mg/dL (70-99) White Blood Count 8.8 x10^3/uL (4.0-11.0) Red Blood Count 5.26 x10^6/uL (4.30-5.70) Hemoglobin 16.0 g/dL (13.0-17.5) Hematocrit 47.0 % (39.0-53.0) Mean Corpuscular Volume 89 fL (79-100) Mean Corpuscular Hemoglobin 30 pg (25-35) Mean Corpuscular Hemoglobin Concent 34 g/dL (31-37) Red Cell Distribution Width 13.2 % (11.5-14.5) Platelet Count 255 x10^3/uL (140-400) Neutrophils (%) (Auto) 72 % (31-73) Lymphocytes (%) (Auto) 17 % (24-48) Monocytes (%) (Auto) 9 % (0-9) Eosinophils (%) (Auto) 2 % (0-3) Basophils (%) (Auto) 1 % (0-3) Neutrophils # (Auto) 6.3 x10^3uL (1.8-7.7) Lymphocytes # (Auto) 1.5 x10^3/uL (1.0-4.8) Monocytes # (Auto) 0.8 x10^3/uL (0.0-1.1) Eosinophils # (Auto) 0.2 x10^3/uL (0.0-0.7) Basophils # (Auto) 0.1 x10^3/uL (0.0-0.2) Sodium Level 139 mmol/L (136-145) Potassium Level 3.9 mmol/L (3.5-5.1) Chloride Level 102 mmol/L (98-107) Carbon Dioxide Level 27 mmol/L (21-32) Anion Gap 10 (6-14) Blood Urea Nitrogen 17 mg/dL (8-26) Creatinine 1.1 mg/dL (0.7-1.3) Estimated GFR (Cockcroft-Gault) 70.6 BUN/Creatinine Ratio 15 (6-20) Glucose Level 112 mg/dL (70-99) Calcium Level 9.5 mg/dL (8.5-10.1) Total Bilirubin 0.6 mg/dL (0.2-1.0) Aspartate Amino Transf (AST/SGOT) 26 U/L (15-37) Alanine Aminotransferase (ALT/SGPT) 37 U/L (16-63) Alkaline Phosphatase 72 U/L (46-116) Creatine Kinase 153 U/L (39-308) Creatine Kinase MB (Mass) 0.5 ng/mL (0.0-3.6) Creatine Kinase MB Relative Index 0.3 % (0-4) Troponin I Quantitative < 0.017 ng/mL (0.000-0.055) < 0.017 ng/mL (0.000-0.055) Total Protein 8.3 g/dL (6.4-8.2) Albumin 4.3 g/dL (3.4-5.0) Albumin/Globulin Ratio 1.1 (1.0-1.7) Urine Collection Type Unknown Urine Color Yellow Urine Clarity Clear Urine pH 6.0 Urine Specific [place] 1.025 Urine Protein Negative mg/dL (NEG-TRACE) Urine Glucose (UA) Negative mg/dL (NEG) Urine Ketones (Stick) Negative mg/dL (NEG) Urine Blood Negative (NEG) Urine Nitrite Negative (NEG) Urine Bilirubin Negative (NEG) Urine Urobilinogen Dipstick 0.2 mg/dL (0.2 mg/dL) Urine Leukocyte Esterase Negative (NEG) Urine RBC 0 /HPF (0-2) Urine WBC 0 /HPF (0-4) Urine Squamous Epithelial Cells None /LPF Urine Bacteria 0 /HPF (0-FEW) Urine Mucus Marked /LPF Urine Opiates Screen Neg (NEG) Urine Methadone Screen Neg (NEG) Urine Barbiturates Neg (NEG) Urine Phencyclidine Screen Neg (NEG) Urine Amphetamine/Methamphetamine Neg (NEG) Urine Benzodiazepines Screen Neg (NEG) Urine Cocaine Screen Neg (NEG) Urine Cannabinoids Screen Neg (NEG) Urine Ethyl Alcohol Neg (NEG) Test 03/12/17 22:29 03/13/17 04:20 Troponin I Quantitative < 0.017 ng/mL (0.000-0.055) White Blood Count 9.5 x10^3/uL (4.0-11.0) Red Blood Count 5.09 x10^6/uL (4.30-5.70) Hemoglobin 15.4 g/dL (13.0-17.5) Hematocrit 45.7 % (39.0-53.0) Mean Corpuscular Volume 90 fL (79-100) Mean Corpuscular Hemoglobin 30 pg (25-35) Mean Corpuscular Hemoglobin Concent 34 g/dL (31-37) Red Cell Distribution Width 13.4 % (11.5-14.5) Platelet Count 248 x10^3/uL (140-400) Neutrophils (%) (Auto) 62 % (31-73) Lymphocytes (%) (Auto) 25 % (24-48) Monocytes (%) (Auto) 11 % (0-9) Eosinophils (%) (Auto) 2 % (0-3) Basophils (%) (Auto) 1 % (0-3) Neutrophils # (Auto) 5.9 x10^3uL (1.8-7.7) Lymphocytes # (Auto) 2.3 x10^3/uL (1.0-4.8) Monocytes # (Auto) 1.1 x10^3/uL (0.0-1.1) Eosinophils # (Auto) 0.2 x10^3/uL (0.0-0.7) Basophils # (Auto) 0.0 x10^3/uL (0.0-0.2) Sodium Level 138 mmol/L (136-145) Potassium Level 3.5 mmol/L (3.5-5.1) Chloride Level 100 mmol/L (98-107) Carbon Dioxide Level 26 mmol/L (21-32) Anion Gap 12 (6-14) Blood Urea Nitrogen 15 mg/dL (8-26) Creatinine 1.3 mg/dL (0.7-1.3) Estimated GFR (Cockcroft-Gault) 58.2 BUN/Creatinine Ratio 12 (6-20) Glucose Level 106 mg/dL (70-99) Calcium Level 9.3 mg/dL (8.5-10.1) Total Bilirubin 0.6 mg/dL (0.2-1.0) Aspartate Amino Transf (AST/SGOT) 16 U/L (15-37) Alanine Aminotransferase (ALT/SGPT) 30 U/L (16-63) Alkaline Phosphatase 64 U/L (46-116) Total Protein 7.5 g/dL (6.4-8.2) Albumin 3.9 g/dL (3.4-5.0) Albumin/Globulin Ratio 1.1 (1.0-1.7) Laboratory Tests Test 03/12/17 09:07 03/12/17 09:18 03/12/17 13:25 03/12/17 17:50 Glucose (Fingerstick) 118 mg/dL (70-99) White Blood Count 8.8 x10^3/uL (4.0-11.0) Red Blood Count 5.26 x10^6/uL (4.30-5.70) Hemoglobin 16.0 g/dL (13.0-17.5) Hematocrit 47.0 % (39.0-53.0) Mean Corpuscular Volume 89 fL (79-100) Mean Corpuscular Hemoglobin 30 pg (25-35) Mean Corpuscular Hemoglobin Concent 34 g/dL (31-37) Red Cell Distribution Width 13.2 % (11.5-14.5) Platelet Count 255 x10^3/uL (140-400) Neutrophils (%) (Auto) 72 % (31-73) Lymphocytes (%) (Auto) 17 % (24-48) Monocytes (%) (Auto) 9 % (0-9) Eosinophils (%) (Auto) 2 % (0-3) Basophils (%) (Auto) 1 % (0-3) Neutrophils # (Auto) 6.3 x10^3uL (1.8-7.7) Lymphocytes # (Auto) 1.5 x10^3/uL (1.0-4.8) Monocytes # (Auto) 0.8 x10^3/uL (0.0-1.1) Eosinophils # (Auto) 0.2 x10^3/uL (0.0-0.7) Basophils # (Auto) 0.1 x10^3/uL (0.0-0.2) Sodium Level 139 mmol/L (136-145) Potassium Level 3.9 mmol/L (3.5-5.1) Chloride Level 102 mmol/L (98-107) Carbon Dioxide Level 27 mmol/L (21-32) Anion Gap 10 (6-14) Blood Urea Nitrogen 17 mg/dL (8-26) Creatinine 1.1 mg/dL (0.7-1.3) Estimated GFR (Cockcroft-Gault) 70.6 BUN/Creatinine Ratio 15 (6-20) Glucose Level 112 mg/dL (70-99) Calcium Level 9.5 mg/dL (8.5-10.1) Total Bilirubin 0.6 mg/dL (0.2-1.0) Aspartate Amino Transf (AST/SGOT) 26 U/L (15-37) Alanine Aminotransferase (ALT/SGPT) 37 U/L (16-63) Alkaline Phosphatase 72 U/L (46-116) Creatine Kinase 153 U/L (39-308) Creatine Kinase MB (Mass) 0.5 ng/mL (0.0-3.6) Creatine Kinase MB Relative Index 0.3 % (0-4) Troponin I Quantitative < 0.017 ng/mL (0.000-0.055) < 0.017 ng/mL (0.000-0.055) Total Protein 8.3 g/dL (6.4-8.2) Albumin 4.3 g/dL (3.4-5.0) Albumin/Globulin Ratio 1.1 (1.0-1.7) Urine Collection Type Unknown Urine Color Yellow Urine Clarity Clear Urine pH 6.0 Urine Specific [place] 1.025 Urine Protein Negative mg/dL (NEG-TRACE) Urine Glucose (UA) Negative mg/dL (NEG) Urine Ketones (Stick) Negative mg/dL (NEG) Urine Blood Negative (NEG) Urine Nitrite Negative (NEG) Urine Bilirubin Negative (NEG) Urine Urobilinogen Dipstick 0.2 mg/dL (0.2 mg/dL) Urine Leukocyte Esterase Negative (NEG) Urine RBC 0 /HPF (0-2) Urine WBC 0 /HPF (0-4) Urine Squamous Epithelial Cells None /LPF Urine Bacteria 0 /HPF (0-FEW) Urine Mucus Marked /LPF Urine Opiates Screen Neg (NEG) Urine Methadone Screen Neg (NEG) Urine Barbiturates Neg (NEG) Urine Phencyclidine Screen Neg (NEG) Urine Amphetamine/Methamphetamine Neg (NEG) Urine Benzodiazepines Screen Neg (NEG) Urine Cocaine Screen Neg (NEG) Urine Cannabinoids Screen Neg (NEG) Urine Ethyl Alcohol Neg (NEG) Test 03/12/17 22:29 03/13/17 04:20 Troponin I Quantitative < 0.017 ng/mL (0.000-0.055) White Blood Count 9.5 x10^3/uL (4.0-11.0) Red Blood Count 5.09 x10^6/uL (4.30-5.70) Hemoglobin 15.4 g/dL (13.0-17.5) Hematocrit 45.7 % (39.0-53.0) Mean Corpuscular Volume 90 fL (79-100) Mean Corpuscular Hemoglobin 30 pg (25-35) Mean Corpuscular Hemoglobin Concent 34 g/dL (31-37) Red Cell Distribution Width 13.4 % (11.5-14.5) Platelet Count 248 x10^3/uL (140-400) Neutrophils (%) (Auto) 62 % (31-73) Lymphocytes (%) (Auto) 25 % (24-48) Monocytes (%) (Auto) 11 % (0-9) Eosinophils (%) (Auto) 2 % (0-3) Basophils (%) (Auto) 1 % (0-3) Neutrophils # (Auto) 5.9 x10^3uL (1.8-7.7) Lymphocytes # (Auto) 2.3 x10^3/uL (1.0-4.8) Monocytes # (Auto) 1.1 x10^3/uL (0.0-1.1) Eosinophils # (Auto) 0.2 x10^3/uL (0.0-0.7) Basophils # (Auto) 0.0 x10^3/uL (0.0-0.2) Sodium Level 138 mmol/L (136-145) Potassium Level 3.5 mmol/L (3.5-5.1) Chloride Level 100 mmol/L (98-107) Carbon Dioxide Level 26 mmol/L (21-32) Anion Gap 12 (6-14) Blood Urea Nitrogen 15 mg/dL (8-26) Creatinine 1.3 mg/dL (0.7-1.3) Estimated GFR (Cockcroft-Gault) 58.2 BUN/Creatinine Ratio 12 (6-20) Glucose Level 106 mg/dL (70-99) Calcium Level 9.3 mg/dL (8.5-10.1) Total Bilirubin 0.6 mg/dL (0.2-1.0) Aspartate Amino Transf (AST/SGOT) 16 U/L (15-37) Alanine Aminotransferase (ALT/SGPT) 30 U/L (16-63) Alkaline Phosphatase 64 U/L (46-116) Total Protein 7.5 g/dL (6.4-8.2) Albumin 3.9 g/dL (3.4-5.0) Albumin/Globulin Ratio 1.1 (1.0-1.7) Medications Current Medications Hydralazine HCl (Apresoline Inj) 10 mg 1X ONCE IVP Last administered on t 09:31; Start 03/12/17 at 09:15; Stop 03/12/17 at 09:18; Status DC Ondansetron HCl (Zofran) 4 mg PRN Q8HRS PRN IV NAUSEA/VOMITING; Start 03/12/17 at 11:00; Stop 03/12/17 at 12:06; Status DC Morphine Sulfate 2 mg PRN Q2HR PRN IV PAIN; Start 03/12/17 at 11:00; Stop 03/13 at 10:59 Acetaminophen (Tylenol) 650 mg PRN Q4HRS PRN PO FEVER; Start 03/12/17 at 11:00 ; Stop 03/13/17 at 10:59 Ondansetron HCl (Zofran) 4 mg PRN Q6HRS PRN IV NAUSEA/VOMITING; Start 03/12/17 at 12:15; Stop 03/13/17 at 12:14 Hydralazine HCl (Apresoline Inj) 10 mg PRN Q4HRS PRN IVP ELEVATED BP, SEE COMMENTS Last administered on 03/12/17 19:45; Start 03/12/17 at 12:15 Acetaminophen/ Hydrocodone Bitart (Lortab 5/325) 1 tab PRN Q4HRS PRN PO PAIN Last administered on 03/12/17 19:46; Start 03/12/17 at 12:15 Lisinopril (Prinivil) 5 mg DAILY PO Last administered on 03/13/17 08:11; Start 03/12/17 at 14:45 Hydrochlorothiazide (Hydrodiuril) 25 mg DAILY PO Last administered on 08:12; Start 03/12/17 at 14:45 Lorazepam (Ativan) 1 mg 1X ONCE IV Last administered on 03/12/17 16:29; Start 03/12/17 at 15:45; Stop 03/12/17 at 15:46; Status DC Gadobutrol (Gadavist) 10 mmol 1X ONCE IV Last administered on 03/12/17 17:06 ; Start 03/12/17 at 16:45; Stop 03/12/17 at 16:47; Status DC Lorazepam (Ativan) 1 mg 1X ONCE IV Last administered on 03/12/17 21:52; Start 03/12/17 at 21:15; Stop 03/12/17 at 21:17; Status DC Diphenhydramine HCl (Benadryl) 25 mg 1X ONCE PO Last administered on 21:51; Start 03/12/17 at 21:15; Stop 03/12/17 at 21:17; Status DC Diphenhydramine HCl (Benadryl) 25 mg PRN Q6HRS PRN PO ITCHING; Start 03/12/17 at 21:15 Oxymetazoline HCl (Afrin) 2 spray BID NS ; Start 03/13/17 at 09:00 Oxymetazoline HCl (Afrin) 2 spray 1X ONCE NS Last administered on 03/12/17t 21 :52; Start 03/12/17 at 21:15; Stop 03/12/17 at 21:17; Status DC Vitals/I & O Vital Sign - Last 24 Hours 03/12/17 03/12/17 03/12/17 03/12/17 09:02 09:08 09:13 09:29 Temp 98.1 98.1 Pulse 76 72 72 Resp 16 22 B/P (MAP) 229/126 (160) Pulse Ox 98 94 97 O2 Delivery Room Air 03/12/17 03/12/17 03/12/17 03/12/17 09:31 09:33 09:49 10:19 Pulse 75 72 74 72 Resp 19 15 14 B/P (MAP) 212/122 Pulse Ox 96 95 94 03/12/17 03/12/17 03/12/17 03/12/17 10:49 11:15 11:36 11:37 Temp 97.9 97.9 Pulse 76 74 77 70 Resp 21 16 16 B/P (MAP) 189/104 (132) 196/64 (108) Pulse Ox 95 95 96 O2 Delivery Room Air 03/12/17 03/12/17 03/12/17 03/12/17 11:59 14:11 15:00 15:16 Temp 97.9 97.9 Pulse 68 81 Resp 16 B/P (MAP) 165/93 167/87 (113) Pulse Ox 97 96 O2 Delivery Room Air Room Air 03/12/17 03/12/17 03/12/17 03/12/17 18:08 19:00 19:05 19:45 Temp 98.1 98.1 Pulse 81 80 80 Resp 18 B/P (MAP) 167/87 159/96 (117) 159/96 Pulse Ox 96 O2 Delivery Room Air 03/12/17 03/12/17 03/12/17 03/12/17 19:46 20:00 20:46 23:05 Temp 97.6 97.6 Pulse 67 Resp 17 18 B/P (MAP) 128/76 (93) Pulse Ox 96 96 96 O2 Delivery Room Air Room Air Room Air Room Air 03/13/17 03/13/17 03/13/17 03/13/17 03:05 07:00 08:11 08:13 Temp 98.0 98.1 98.0 98.1 Pulse 64 72 72 Resp 18 16 B/P (MAP) 107/68 (81) 138/85 (102) 138/85 Pulse Ox 97 98 O2 Delivery Room Air Room Air Room Air Intake and Output 03/12/17 03/12/17 03/13/17 15:00 23:00 07:00 Intake Total 50 ml 600 ml Balance 50 ml 600 ml Images MRI of the Brain without and with Contrast 03/12/2017 Clinical History: Headache and dizziness. Possible mass seen on CT scan of the head from earlier today. Technique: Unenhanced T1-weighted sagittal and axial and FLAIR, T2-weighted, gradient echo and diffusion-weighted axial images of the brain were obtained. After the intravenous administration of 10 cc of Gadavist, enhanced T1-weighted axial and coronal images of the brain were obtained. Findings: Comparison is made to the patient's CT scan of the head performed earlier today. The ventricles are within normal limits in size and configuration. 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 This measures 4.4 cm in greatest AP dimension. This corresponds to the abnormality seen on the patient's CT scan. 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 Patchy and several small scattered areas of abnormally increased signal intensity are seen within the periventricular and subcortical white matter of both cerebral hemispheres on the FLAIR and T2-weighted images consistent most likely with areas of mild small vessel ischemic disease. No acute parenchymal normality is seen. No extra-axial fluid collection is noted. No area of abnormal contrast enhancement is seen. Mild to moderate mucosal thickening is seen involving the paranasal sinuses. Normal flow voids are seen within the major vascular structures surrounding the brain parenchyma. IMPRESSION:. 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 This corresponds to the abnormality seen on the patient's CT scan. No acute parenchymal abnormality is seen. ELISHA ESPINO MD Mar 13, 2017 08:55
[2017-03-13] MEDS ORDERED: OXYMETAZOLINE 0.05% NASAL SPRAY 30ML BOTTLE. NS SCH (09:00)
[2017-03-13 10:40] VITALS: BP 132/78
--- NOTE | 2017-03-13 10:50 | DISCH ---
DISCHARGE INSTRUCTIONS Condition on Discharge Condition on Discharge: Stable Activity After Discharge Activity Instructions for Disc: No restrictions Diet after Discharge Diet after Discharge: Cardiac Checks after Discharge DC Comment: Blood pressure check with PCP Follow-Up Follow up with: Primary care doctor in 1-2 weeks ALEIDA DOCKERY MD Mar 13, 2017 10:50
[2017-03-13] MEDS ORDERED: LISI-338 PO (10:55)
[2017-03-13] MEDS ORDERED: HYDR25TA9 PO (10:55)
--- NOTE | 2017-03-13 16:57 | PDOC3 ---
Discharge Summary IPC Date of Admission: Mar 12, 2017 Discharge Date: Mar 13, 2017 Admitting Diagnosis 1. Hypertensive urgency Problems: (1) Hypertension (2) Hypertensive urgency (3) Brain lipoma Final Diagnosis 1. Hypertension 2. Brain Lipoma CONSULTS Neurology Procedures None Brief Hospital Course Mr. Rodgers is a 51 old male who came in with headaches found to have blood pressure of systolic 200s and CT head showed a brain lipoma. Neurology was consulted and an MRI of brain was done which confirmed what the CT showed. Patient was started on oral antihypertensives and his blood pressure came done and his headaches were gone and patient was medically stable for discharge. Problems: (1) Brain lipoma (2) Hypertension Disposition Home CONDITION AT DISCHARGE: Stable Diet cardiac Scheduled Hydrochlorothiazide (Hydrochlorothiazide Tablet ), 25 MG PO DAILY Lisinopril (Lisinopril), 5 MG PO DAILY Follow Up Follow-up with PCP in 1 week BMP in 1 month Problem Qualifiers (1) Hypertension: Hypertension type: essential hypertension Qualified Codes: I10 - Essential ( primary) hypertension ALEIDA DOCKERY MD Mar 13, 2017 16:57
== END 2017-03-13 12:54 | disposition home or self-care (01) | DRG 606 ==
LOC: ER 08:56 → 6 SOUTH 10:44
PROVIDERS: ADMIT Internal Medicine; ATTEND Internal Medicine
DX: D17.9 Benign lipomatous neoplasm, unspecified (principal); G93.40 Encephalopathy, unspecified; I16.1 Hypertensive emergency; I10 Essential (primary) hypertension; Z82.49 Family history of ischemic heart disease and other diseases of the circulatory system
CPT/HCPCS: 36415; 70450; 70553; 71010; 80053; 80307; 81001; 82553; 82962; 84484; 85025; 93005; 93306; 96374; A9585; J0360; J2060; Q0163; 99285-25; G0479

== ENCOUNTER 2018-10-14 18:21 | Emergency (ER) | payer BC ==
[~2018-10-14] VITALS: Ht 175.3 cm; Wt 127.0 kg
[~2018-10-14 18:21] MED LIST: HYDR-2145 PO; LISI-338 PO
[2018-10-14 18:42] VITALS: BP 159/87
[2018-10-14] MEDS ORDERED: ATOR20TA58 PO (19:16)
[2018-10-14] MEDS ORDERED: HYDR-2145 PO (19:16)
[2018-10-14] MEDS ORDERED: LISI10TA2 PO (19:16)
--- NOTE | 2018-10-14 19:17 | PHYS DOC ---
Past Medical History Past Medical History: Hypertension, Pneumonia (REDDY SHARP APRN) Past Surgical History: No Surgical History, Tonsillectomy (REDDY SHARP APRN) Alcohol Use: None Drug Use: None (REDDY SHARP APRN) Adult General Chief Complaint Chief Complaint: HYPERTENSION HPI HPI Patient is a 52 year old male with history of hypertension who presents with the ED today requesting one week supply of blood pressure medication and cholesterol medicines, patient ran out of the medications a couple days ago and the PCP will not refill the medications until he sees patient on October 21, 2018. Denies any symptoms related to blood pressure issues (REDDY SHARP APRN) Review of Systems Review of Systems Constitutional: Denies fever or chills [] Eyes: Denies change in visual acuity, redness, or eye pain [] HENT: Denies nasal congestion or sore throat [] Respiratory: Denies cough or shortness of breath [] Cardiovascular: Request for blood pressure medication refill GI: Denies abdominal pain, nausea, vomiting, bloody stools or diarrhea [] : Denies dysuria or hematuria [] Musculoskeletal: Denies back pain or joint pain [] Integument: Denies rash or skin lesions [] Neurologic: Denies headache, focal weakness or sensory changes [] All other systems were reviewed and found to be within normal limits, except as documented in this note. (REDDY SHARP APRN) Current Medications Current Medications Current Medications Medications (Trade) Dose Ordered Sig/Susan Start Time Stop Time Status Last Admin Dose Admin Hydrochlorothiazide (Hydrodiuril) 25 mg 1X ONCE 10/14/18 19:30 10/14/18 19:30 DC 10/14/18 19:24 25 MG Hydrochlorothiazide (Microzide) 25 mg 1X ONCE 10/14/18 19:30 10/14/18 19:30 DC Lisinopril (Prinivil) 10 mg 1X ONCE 10/14/18 19:30 10/14/18 19:30 DC (CARLOS CLEMENT MD) Allergies Allergies Allergies Coded Allergies Type Severity Reaction Last Updated Verified No Known Drug Allergies 03/12/17 No (CARLOS CLEMENT MD) Physical Exam Physical Exam Constitutional: Well developed, well nourished, no acute distress, non-toxic appearance. [] HENT: Normocephalic, atraumatic, bilateral external ears normal, oropharynx moist, no oral exudates, nose normal. [] Eyes: PERRLA, EOMI, conjunctiva normal, no discharge. [] Neck: Normal range of motion, no tenderness, supple, no stridor. [] Cardiovascular:Heart rate regular rhythm, no murmur [] Lungs & Thorax: Bilateral breath sounds clear to auscultation [] Abdomen: Bowel sounds normal, soft, no tenderness, no masses, no pulsatile masses. [] Skin: Warm, dry, no erythema, no rash. [] Back: No tenderness, no CVA tenderness. [] Extremities: No tenderness, no cyanosis, no clubbing, ROM intact, no edema. [] Neurologic: Alert and oriented X 3, normal motor function, normal sensory function, no focal deficits noted. [] Psychologic: Affect normal, judgement normal, mood normal. [] (REDDY SHARP APRN) Current Patient Data Vital Signs Vital Signs Date Time Temp Pulse Resp B/P (MAP) Pulse Ox O2 Delivery O2 Flow Rate FiO2 10/14/18 18:42 98.4 72 18 159/87 (111) 95 Room Air 98.4 (CARLOS CLEMENT MD) EKG EKG [] (REDDY SHARP APRN) Radiology/Procedures Radiology/Procedures [] (REDDY SHARP APRN) Course & Med Decision Making Course & Med Decision Making Pertinent Labs and Imaging studies reviewed. (See chart for details) This is a 52-year-old male patient presented to the ED today with a request for refill of blood pressure medications, he ran out a couple days ago, his next appointment with his PCP is October 21, 2018. One week supply of lisinopril, HCTZ and atorvastatin given. BP in the Ed 159/87 (REDDY SHARP APRN) Course & Med Decision Making Staff Physician Addendum: I was working in the ER during the course of this patient's visit. I was available for consultation as needed, but I was not directly involved in the care of this patient. (CARLOS CLEMENT MD) Dragon Disclaimer Dragon Disclaimer This electronic medical record was generated, in whole or in part, using a voice recognition dictation system. (REDDY SHARP APRN) Departure Departure Impression: Primary Impression: Medication refill Additional Impression: Hypertension Disposition: HOME, SELF-CARE Condition: STABLE Referrals: HARJINDER WICK MD (PCP) follow up 10/21/2018 Patient Instructions: Hypertension Additional Instructions: We gave you one week supply of your blood pressure medications, ensure you follow-up with your doctor on October 21, 2018 Scripts Atorvastatin Calcium (ATORVASTATIN CALCIUM) 20 Mg Tablet 1 TAB PO DAILY, #7 TAB 0 Refills Prov: REDDY SHARP APRN 10/14/18 Hydrochlorothiazide (HYDROCHLOROTHIAZIDE TABLET ) 25 Mg Tablet 25 MG PO DAILY for DIURETIC, #7 TAB 0 Refills Prov: REDDY SHARP APRN 10/14/18 Lisinopril (LISINOPRIL) 10 Mg Tablet 1 TAB PO DAILY, #7 TAB 0 Refills Prov: REDDY SHARP APRN 10/14/18 Problem Qualifiers Additional Impression: Hypertension Hypertension type: unspecified Qualified Codes: I10 - Essential (primary) hypertension REDDY SHAPR APRN Oct 14, 2018 19:17 CARLOS CLEMENT MD Oct 15, 2018 05:11
[2018-10-14] MEDS ORDERED: hydroCHLOROthiazide 12.5 MG CAPSULE PO ONE (19:30)
[2018-10-14] MEDS ORDERED: hydroCHLOROthiazide 25 MG TABLET PO ONE (19:30)
[2018-10-14] MEDS ORDERED: LISINOPRIL 10 MG TABLET PO ONE (19:30)
== END 2018-10-14 19:27 | disposition home or self-care (01) ==
LOC: ER 18:21
DX: I10 Essential (primary) hypertension (principal); Z76.0 Encounter for issue of repeat prescription; Z90.89 Acquired absence of other organs
CPT/HCPCS: 99283